=== PATIENT | male | born 1955 | race Caucasian/White ===

== ENCOUNTER 2016-03-18 09:13 | Emergency (ER) | payer BC ==
[~2016-03-18] VITALS: Ht 188 cm; Wt 85.0 kg
[~2016-03-18 09:13] MED LIST: AMOX875 PO; HYDR-3533 PO; MMW SSP; NAPR500 OR
[2016-03-18 09:54] VITALS: BP 160/77; PULSE 64; RESP 18; TEMP 98.8; O2SAT 95
[2016-03-18] MEDS ORDERED: CLIN1CAP6 PO (11:43)
[2016-03-18] MEDS ORDERED: BACT800T5 PO (11:43)
[2016-03-18] MEDS ORDERED: LIDOCAINE 1%/EPINEPHrine 1:100,000 SOLN 20 ML VIAL INFIL ONE (11:45)
[2016-03-18] MEDS ORDERED: CLINDAMYCIN PHOS 600 MG/4 ML VIAL IM ONE (11:45)
--- NOTE | 2016-03-18 11:51 | PD ---
HPI Chief Complaint: Skin Problem Time Seen by Provider: 11:43 Travel History International Travel<30 days: No Contact w/Intl Traveler<30days: No Traveled to known affect area: No History of Present Illness HPI Patient is a 60-year-old male with chief complaint of left arm skin rash. He states he works in construction and thinks he was bitten by an insect because he had a swollen area about the size of a quarter and itching 3 weeks prior. He states he scratched it and it did break open and within several days it began having a pustular drainage. It slowly got larger and he took some leftover amoxicillin from a prior dental infection for 3-4 days that seemed to help. It has progressively worsened since stopping the antibiotic. He endorses a history of infection in the past requiring "strong antibiotics "but is not sure if he had MRSA. Last tetanus vaccine 3 years prior. He denies fever, chills, nausea, vomiting, lymphadenopathy, paresthesias in the extremity. The pain is minimal, does have some mild pruritus. He denies any general pruritus or other rashes or difficulty breathing or swallowing. Endorses tobacco use. PFSH Past Medical History Medical History: Denies Significant Hx Tetanus Vaccination: > 5 Years Past Surgical History Other Surgery: Yes (hernia) Social History Alcohol Use: Yes Tobacco Use: Yes Substance Use: No Allergies-Medications (Allergen,Severity, Reaction): Coded Allergies: No Known Allergies (Unverified , 03/18/16) Reported Meds & Prescriptions Reported Meds & Active Scripts Active Clindamycin (Clindamycin HCl) 300 Mg Cap 300 Mg PO Q6H 10 Days Bactrim DS (Sulfamethoxazole-Trimethoprim) 800-160 Mg Tab 1 Tab PO BID Review of Systems Except as stated in HPI: all other systems reviewed are Neg Physical Exam Narrative GENERAL: Well-developed and well-nourished adult male in no acute distress. SKIN: Irregular shaped 7 x 5 cm area on the left forearm with erythema and multiple small punctum's that it is a small amount of sugar material with pressure. There is minimal warmth and tenderness. There is no surrounding cellulitis or streaking. There is an area medially that appears to have a small amount of fluctuance consistent with abscess that may not be draining spontaneously like the other areas. Skin is otherwise warm and dry. Good turgor without tenting. HEAD: Normocephalic and atraumatic. EYES: PERRL bilaterally, 5mm. EOMI bilaterally. No injection or icterus present. No proptosis. Lids without edema or erythema. ENT: Buccal mucosa pink and moist. Oropharynx free of erythema, tonsillar hypertrophy, masses, swelling, asymmetry and exudates. Uvula midline and airway patent. NECK: Supple, no meningeal signs. Trachea midline, no JVD. 2 chronic lipomas in the left posterior neck and upper trapezius on the left side, nonerythematous or tender to palpation. CARDIOVASCULAR: Regular rate and rhythm without murmurs, rubs, clicks or gallops. Radial pulses 2+ bilaterally. Capillary refill less than 2 seconds distal tip of all fingers of left hand. RESPIRATORY: Clear to auscultation bilaterally with symmetrical rise and fall, no distress or use of accessory muscles. LYMPH: Negative left epitrochlear and axillary lymphadenopathy. Negative bilateral supraclavicular, cervical and facial lymphadenopathy. MUSCULOSKELETAL: Skin findings for left forearm per above. There is no edema to the forearm. No loss of range of motion or pain in the elbow or wrist on the left. No gait disturbances. Patient freely moving all four extremities spontaneously. Extremities without clubbing, cyanosis, or edema. No obvious deformities. NEUROLOGIC: CN II-XII grossly intact. Awake and alert. Strength 5/5 bilateral elbow flexion, elbow extension, wrist flexion, wrist extension. Sensation intact and strength 5/5 over radial, median, and ulnar nerve distributions bilaterally. Sensation to the distal tip of all fingers of left hand. Normal speech. PSYCHIATRIC: Appropriate mood and affect; insight and judgment normal. Data Data Last Documented VS Vital Signs Date Time Temp Pulse Resp B/P Pulse Ox O2 Delivery O2 Flow Rate FiO2 03/18/16 09:54 98.8 64 18 160/77 95 Orders Wound Culture And Gram Stain (03/18/16 11:41) Clindamycin Inj (Cleocin Inj) (03/18/16 11:45) Lidocai-Epi 1%-1:100,000 Inj (Xylocaine- (03/18/16 11:45) MDM Medical Decision Making Medical Screen Exam Complete: Yes Emergency Medical Condition: Yes Differential Diagnosis Cellulitis versus abscess versus tinea versus dermatitis Narrative Course She is a 60-year-old otherwise healthy male who is afebrile, nontoxic and has no systemic complaints presenting with skin lesion looks like cellulitis and small superficial self draining abscesses in the left forearm. There is no surrounding cellulitis or lymphadenopathy. Patient took a few days worth left over amoxicillin 1 week ago and felt this did improve and it has slowly worsened again. Performed incision and drainage on one area that does not appear to be draining spontaneously. Sent wound culture. Tetanus vaccine are up-to-date. Patient was given clindamycin 600 mg IM here and prescription for Bactrim and clindamycin and recommend follow-up with PCP in one to 2 days.See discharge paperwork for further instructions. The plan was discussed with the patient who acknowledged their understanding and agreement. Reinforced the follow-up with primary care is critically important. Patient instructed on emergent conditions that should prompt return to ED. Procedures Procedure Narrative I&D LOCATION: Left forearm SIZE: 3 cm ANESTHESIA: 1 Percent lidocaine with epi PROCEDURE: The abscess was prepped with Betadine and sterilely draped. The abscess was infiltrated with 1 cc of above anesthetic. Incision was made with a #11 blade with length of 1.5 cm and depth of 8 mm. Expressed purulent and bloody material, approximately 2 mL. The wound was copiously irrigated and loculations were broken up. The wound was left open and covered with a sterile dressing. Packing was not done. The patient was advised to keep the dressing clean and dry. Patient tolerated the procedure well. Diagnosis Primary Impression: Cellulitis and abscess of other specified site Patient Instructions: Abscess Incision and Drainage (ED), Cellulitis (ED), General Instructions Additional Instructions: Keep area clean, dry, and covered with dressing/bandage Apply warm compresses daily to help with drainage Warm water Epsom salt soaks will help promote drainage Wound will continue to drain which is normal Take Tylenol or ibuprofen for pain Take medications as directed Follow-up with PCP in 2 days, call laboratory for wound culture results Return to the ED for any acute worsening of symptoms including worsening swelling, spreading redness, fever, chills, nausea and vomiting Med/Other Pt SpecificInfo: Prescription(s) given Scripts Clindamycin 300 Mg [id number] Mg PO Q6H 10 Days Prov:Viviane Galvan MD 03/18/16 Sulfamethoxazole-Trimethoprim (Bactrim DS)800-160 Mg Tab1 Tab PO BID #20 TAB Prov:Viviane aGlvan MD 03/18/16 Disposition: 01 DISCHARGE HOME Condition: Stable Nadir Peterson III Mar 18, 2016 11:50
[2016-03-18 12:36] VITALS: BP 142/68
== END 2016-03-18 12:44 | disposition home or self-care (01) ==
LOC: NEPE 09:13
DX: L02.414 Cutaneous abscess of left upper limb (principal); B95.62 Methicillin resistant Staphylococcus aureus infection as the cause of diseases classified elsewhere; Z72.0 Tobacco use
CPT/HCPCS: 10060; 86403; 87070; 87186; 96372

== ENCOUNTER 2016-04-30 22:46 | Emergency (ER) | payer BC ==
[~2016-04-30] VITALS: Ht 182.9 cm; Wt 92.0 kg
[~2016-04-30 22:46] MED LIST changes: -AMOX875 PO; +BACT800T5 PO; +CLIN1CAP6 PO; -HYDR-3533 PO; -MMW SSP; -NAPR500 OR
[2016-04-30 22:48] VITALS: BP 134/69; PULSE 73; RESP 16; TEMP 97.8; O2SAT 95
--- NOTE | 2016-05-01 00:14 | PD ---
HPI Chief Complaint: Injury Time Seen by Provider: 00:13 Travel History International Travel<30 days: No Contact w/Intl Traveler<30days: No Traveled to known affect area: No History of Present Illness HPI 61-year-old male presents to the emergency department for evaluation of possible foreign body in the anterior aspect of the right foot. Patient states he believes he stepped on something a month or so ago. Reports pain on the ball of his foot. No fever or chills. No alterations in sensation. No other symptoms to report. PFSH Past Medical History Medical History: Denies Significant Hx Past Surgical History Other Surgery: Yes (hernia) Social History Alcohol Use: Yes Tobacco Use: Yes Substance Use: No Allergies-Medications (Allergen,Severity, Reaction): Coded Allergies: *MDRO Multi-Drug Resistant Organism (Verified Adverse Reaction, Unknown, ) MRSA (arm)- 03/18/16 Reported Meds & Prescriptions Reported Meds & Active Scripts Active No Active Prescriptions or Reported Medications Review of Systems Except as stated in HPI: all other systems reviewed are Neg Physical Exam Narrative GENERAL: Well-nourished, well-developed patient, ambulatory no acute distress SKIN: Warm and dry. 2 cm in diameter hardened callus with some questionable fluctuance on the ball of the right foot. This is adjacent to the distal third metatarsal. HEAD: Normocephalic. EYES: No scleral icterus. No injection or drainage. NECK: Supple, trachea midline. No JVD or lymphadenopathy. CARDIOVASCULAR: Regular rate and rhythm without murmurs, gallops, or rubs. RESPIRATORY: Breath sounds equal bilaterally. No accessory muscle use. GASTROINTESTINAL: Abdomen soft, non-tender, nondistended. MUSCULOSKELETAL: No cyanosis, or edema. BACK: Nontender without obvious deformity. No CVA tenderness. Data Data Last Documented VS Vital Signs Date Time Temp Pulse Resp B/P Pulse Ox O2 Delivery O2 Flow Rate FiO2 04/30/16 22:48 97.8 73 16 134/69 95 Room Air Orders Foot, Complete ([id number]) (05/01/16 ) [facility] Medical Decision Making Medical Screen Exam Complete: Yes Emergency Medical Condition: Yes Medical Record Reviewed: Yes Differential Diagnosis Foreign body versus callus versus abscess Narrative Course 61-year-old male presents to emergency department for evaluation of possible foreign body in his right foot. Patient does have an area concerning for abscess versus foreign body versus callus. X-ray imaging is ordered. Patient becomes very irritated with the wait for his x-ray read. I explained to him that I would not go blindly exploring in his foot he became irritated with this. He states that he "needs some pain medication for this." I explained to him that I would not be giving him any narcotic pain medication. He tells me " I can crunch Tylenol at home." He stated that he wanted to leave. I explained the patient that if he decided to leave prior to his imaging results, he would have to sign out AGAINST MEDICAL ADVICE which could result in worsening of his condition, infection, sepsis, . He states that he "doesn't care." He chose to leave AGAINST MEDICAL ADVICE. Diagnosis Primary Impression: Abscess of left foot excluding toes Scripts No Active Prescriptions or Reported Meds Disposition: 07 AGAINST MEDICAL ADVICE Condition: Stable Maryellen Gannon May 01, 2016 00:13
--- NOTE | 2016-05-01 01:07 | RADRPT ---
EXAM DATE/TIME: 05/01/2016 00:38 [facility] COMPARISON: No previous studies available for comparison. INDICATIONS : Patient stepped on something in his yard a month ago. Pain and swelling on bottom of foot near the pa tient's toes. Patient is a smoker. MEDICAL HISTORY : None. SURGICAL HISTORY : None. ENCOUNTER: Initial ACUITY: 1 month PAIN SCORE: 8/10 LOCATION: Right Foot. FINDINGS: There is no evidence of acute fracture. Bony mineralization is normal. Inferior and posterior calcane al spurs are present. There is a tiny foreign body measuring 3 mm in length in the plantar aspect of the foot seen on the lateral view. CONCLUSION: 1. Foreign body as above Ti Moss MD on May 01, 2016 at 1:04 Board Certified Radiologist. This report was verified electronically.
== END 2016-05-01 01:18 | disposition left against medical advice (07) ==
LOC: NEPB 22:46
DX: L02.612 Cutaneous abscess of left foot (principal)
CPT/HCPCS: 73630; 99283